=== PATIENT | male | born 1975 | race American Indian/Alaskan Native ===

== ENCOUNTER 2017-10-23 12:22 | Emergency (ER) | payer OTHER ==
[2017-10-23 12:34] VITALS: O2SAT 98; BMI 31.3
--- NOTE | 2017-10-23 12:44 | ED PDOC ---
Arrival/HPI - General Chief Complaint: Headache Time Seen by Provider: 10/23/17 12:43 Historian: Patient - History of Present Illness Narrative History of Present Illness (Text): 10/23/17 12:45 Patient is a 41 year old male who presents to the Emergency Department complaining of a head injury which occurred approximately 1 hour ago at work. Patient reports that while working an awning fell and hit the back of his head. He initially experienced a headache and dizziness, which resolved after sitting and drinking some water. He denies any loss of consciousness, and currently feels well. He only takes Motrin for occasional toothaches, and otherwise denies taking any medication including any blood thinners or aspirin. Patient denies currently experiencing any headaches, back pain, neck pain, dizziness, or any other complaints. Of note patient states his employer mandated that he get evaluated at Emergency Department. Time/Duration: 1 hour Symptom Course: Resolved Context: Work Past Medical History - Provider Review Nursing Documentation Reviewed: Yes - Infectious Disease Hx of Infectious Diseases: None - Psychiatric Hx Substance Use: No - Anesthesia Hx Anesthesia: No Hx Anesthesia Reactions: No Hx Malignant Hyperthermia: No Family/Social History - Physician Review Nursing Documentation Reviewed: Yes Family/Social History: No Known Family HX Smoking Status: Current Some Days Smoker Hx Alcohol Use: Yes Frequency of alcohol use: Socially Hx Substance Use: No Allergies/Home Meds Allergies/Adverse Reactions: Allergies No Known Allergies Allergy (Verified 10/23/17 12:37) Home Medications: Home Meds Medication Instructions Recorded Confirmed No Known Home Med 10/23/17 10/23/17 Review of Systems - Physician Review All systems were reviewed & negative as marked: Yes - Review of Systems Musculoskeletal: absent: Back Pain Neurological: absent: Headache Physical Exam - Physical Exam Narrative Physical Exam (Text): 10/23/17 12:50 Constitutional: No acute distress. Head: Normocephalic. Atraumatic. Eyes: PERRL. EOMI. ENT: Moist mucous membranes. Neck: Supple. Cardiovascular: Regular rate. Chest: No tenderness. Respiratory: Clear to auscultation bilaterally. GI: Soft. Nontender. Nondistended. Back: No CVA tenderness. Musculoskeletal: No tenderness or swelling of extremities. Skin: No rash. Neurologic: Alert, no focal deficit. Sensation to touch intact bilaterally. Motor strength 5/5 x4. Finger to nose normal. Romberg normal. Gait steady. Vital Signs Temp Pulse Resp BP Pulse Ox 10/23/17 12:29 98.2 F 61 16 157/88 H 98 Medical Decision Making ED Course and Treatment: 10/23/17 12:52 Impression: Patient is a 41 year old male who presents to the Emergency Department complaining of a head injury that occurred approximately 1 hour ago. Differential Diagnosis included but are not limited to: Minor head injury without evidence of concussion, intracranial hemorrhage, or fracture. Plan: -- Recommend OTC Tylenol as needed. Prior Visits: Notes and results from previous visits were reviewed. Progress Notes: 10/23/17 12:44 Patient is in no acute distress and is stable for discharge. Instructed patient to return to the Emergency Department if he starts experiencing nausea , vomiting, or any new symptoms. Patient received a work note stating that he is medically clear to return to work. - Scribe Statement Pablito Georges Provider Scribe Attestation: All medical record entries made by the Scribe were at my direction and personally dictated by me. I have reviewed the chart and agree that the record accurately reflects my personal performance of the history, physical exam, medical decision making, and the department course for this patient. I have also personally directed, reviewed, and agree with the discharge instructions and disposition. Disposition/Present on Arrival - Present on Arrival Any Indicators Present on Arrival: No History of DVT/PE: No History of Uncontrolled Diabetes: No Urinary Catheter: No History of Decub. Ulcer: No History Surgical Site Infection Following: None - Disposition Have Diagnosis and Disposition been Completed?: Yes Diagnosis: Head injury Disposition: HOME/ ROUTINE Disposition Time: 12:44 Patient Plan: Discharge Condition: STABLE Discharge Instructions (ExitCare): Minor Head Injury (DC) Forms: [employer] ([place]ic), WORK NOTE
[2017-10-23 13:17] VITALS: BP 155/82; PULSE 64; RESP 17; TEMP 98
== END 2017-10-23 13:15 | disposition home or self-care (01) ==
LOC: ED 12:22
DX: S09.90XA Unspecified injury of head, initial encounter (principal); W19.XXXA Unspecified fall, initial encounter; Y99.0 Civilian activity done for income or pay